=== PATIENT | female | born 1975 | race Two or more races ===

== ENCOUNTER 2024-03-31 09:01 | Outpatient (AMB) | payer BC, SELFPAY ==
--- NOTE | 2024-03-31 09:12 | MHC.OFFVIS ---
Vital Signs 03/31/24 09:13 Height 5 ft 6 in Weight 209 lb BMI 33.7 BP 118/78 Blood Pressure Location Lt brachial Position Sitting Pulse 72 Pulse Source Pulse Oximeter Pulse Oximetry (%) 97 Oxygen Delivery Method Room Air Intake Visit Reasons: OA Allergies No Known Allergies Allergy (Verified 03/31/24 09:14) HPI HPI OA: Details: She was unable to have physical therapy and occupational therapy at [facility] last year. She continues to have pain in her left wrist and bilateral shoulders right worse than left. Pain is at rest and with movement. She has tried diclofenac gel, icy hot, lidocaine patches and has been K taping her left wrists without alleviating pain. She is using her 's wrist brace. She has weakness and is dropping things out of her hands. She has difficulty with lifting things. When she takes many Tylenol tablets throughout the day, it causes constipation. [facility] Medical History (Updated 03/31/24 @ 12:20 by George Villarreal MD) Pre-diabetes Review of Systems Const All systems reviewed & are unremarkable except as noted in HPI and below Physical Exam Vital Signs: Last Vital Signs Pulse 72 03/31/24 09:13 BP 118/78 03/31/24 09:13 Pulse Ox 97 03/31/24 09:13 Oxygen Delivery Method Room Air 03/31/24 09:13 BMI result Body Mass Index 33.7 Const Other: General: Comfortable MSK: Tender to palpate left ulnar wrist with pain with range of motion of wrists. No tenderness of radioulnar joint or any small joints in her hands. Weak sourcing internship. No synovitis. Nontender bilateral shoulders. She has pain with range of motion testing on bilateral shoulders but is able to abduct her shoulders 160 degrees. Good internal external rotation. Assessment & Plan Assessment & Plan (1) Extensor carpi ulnaris tendinitis: Comment: Left wrist suspected. She has developed weakness in her hands. Failed Tylenol (constipation side effect), diclofenac gel, OTC icy hot and K taping. I recommend OT. Code(s): M77.8 - Other enthesopathies, not elsewhere classified Category: Medical Plan: OT ordered. She will benefit from hand strengthening program, modalities, paraffin wax bath, ultrasound-guided localized therapy to ulnar wrists. Prescription for left brace thumb spica splint prescribed Avoid oral NSAIDs in setting of prior history of bleeding peptic ulcer disease Return to clinic in 3 months (2) Right rotator cuff tendonitis: Comment: Right shoulder pain is worse than left due to chronic rotator cuff tendinopathy. Failed Tylenol (constipation side effects) and diclofenac gel) She had right shoulder x-[facility], which was normal. Code(s): M75.81 - Other shoulder lesions, right shoulder Category: Medical Plan: PT ordered. Contraindication to oral NSAIDs due to history of bleeding peptic ulcer disease Return to clinic in 3 months or sooner if needed. Can consider shoulder injection in the future Orders: Orders PT Evaluation and Treatment Today M75.81 - Other shoulder lesions, right shoulder OT Evaluation and Treatment Today M77.8 - Other enthesopathies, not elsewhere classified Medications: New Brace,wrist (Wrist Brace - one) As directed Left thumb spica splint Dx: extensor carpi ulnaris tendonitis 1 ea 0RF Coding Level of Care Code Est Pt Level 4 (41320) Complex EM visit Add On G2211 Diagnoses Extensor carpi ulnaris tendinitis M77.8 Right rotator cuff tendonitis M75.81
[2024-03-31 09:13] VITALS: BP 118/78; PULSE 72; O2SAT 97; BMI 33.7
--- OUTSIDE RECORDS SUMMARY | 2024-03-31 09:27 | XMS_ITS | Clinical Summary ---
Author Organization [facility] Address [address] [place] [address] Care Team Providers Care Metal Drawer Name Role Phone Unavailable Primary Care Provider Unavailabl e Social History Tobacco Use Types Packs/Day Years Used Date Smoking Tobacco: Never Assessed Sex and Gender Information Value Date Recorded Sex Assigned at Not on file Gender Identity Not on file Sexual Orientation Not on file Job Start Date Occupation Industry Not on file Not on file Not on file Plan of Treatment Not on file
--- OUTSIDE RECORDS SUMMARY | 2024-03-31 09:27 | XMS_ITS | Encounter Summary ---
Author Organization [facility] Address [address] [place] [address] Care Team Providers Care Tail Sawyer Name Role Phone Alton Franklin MD Primary Care Provider [phone] Reason for Visit * Imaging (Routine) - Closed Specialty Diagnoses / Procedures Referred By Contac t Referred To Contact Radiology Diagnoses Encounter for screening mammogram for breast cancer Procedures MG Mammo Digital Diagnostic w Pierce bilat MG Mammo Digital Screening w Pierce bilat MG Mammo Digital Screening w Pierce bilat Alton Franklin MD [address] [place] [address] Phone: tel: fax: [facility] Referral ID Status Reason Start Date Expiration Date Visits Re quested Visits Authorized [id number] Closed 12/03/2023 12/02/2024 1 1 Encounter Details Date Type Department Care Team (Latest Contact Info) Description 03/08/2024 8:06 AM EST - 03/08/2024 11:59 PM EST Hospital Encounter Radiology Department - [address] [address] Encounter for screening mammogram for breast cancer Discharge Disposition: Home or Self Care Social History Tobacco Use Types Packs/Day Years Used Date Smoking Tobacco: Never Smokeless Tobacco: Never Alcohol Use Standard Drinks/Week Comments Not Currently 0 (1 standard drink = 0.6 oz pur e alcohol) Comments Unknown Sex and Gender Information Value Date Recorded Sex Assigned at Not on file Legal Sex Female 12:31 AM EST Gender Identity Not on file Sexual Orientation Not on file documented as of this encounter Medications at Time of Discharge acetaminophen (TYLENOL) 500 mg tablet Take 2 Tablets by mouth every 8 hours as needed for Other. 06/30/2023 ascorbic acid (VITAMIN C) 500 mg tablet Take 500 mg by mouth daily. atorvastatin (LIPITOR) 20 mg tablet TAKE 1 TABLET BY MOUTH EVERY DAY 90 tablet 01/08/2024 cetirizine (ZyrTEC) 10 mg tablet Take 1 Tablet by mouth daily for 360 days. 06/30/2023 cyclobenzaprine (FLEXERIL) 10 mg tablet Take 1 Tablet by mouth at bedtime as needed for Muscle spasms for up to 10 days. 10/21/2023 ergocalciferol (VITAMIN D-2) 1,250 mcg (50,000 unit) capsule Take 1 capsule (50,000 Units total) by mouth 1 (one) time per week. 12 each 02/24/2024 6 fluticasone HFA (FLOVENT HFA) 110 mcg/actuation inhaler Inhale 1 Puff into the lungs 2 times daily. 07/02/2023 hydroCHLOROthiazi de (MICROZIDE) 12.5 mg capsule Take 1 capsule (12.5 mg total) by mouth 1 (one) time each day. 90 capsule 01/08/2024 hydrOXYzine HCL (ATARAX) 10 mg tablet Take 1 Tablet by mouth every 8 hours as needed for Anxiety for up to 360 days. 08/11/2023 5 levonorgestreL (MIRENA) 21 mcg/24hr (up to 8 yrs) 52 mg IUD 1 Each by Intrauterine route Once. 11/07/2016 losartan (COZAAR) 25 mg tablet Take 1 tablet (25 mg total) by mouth 1 (one) time each day. 09/21/2023 nirmatrelvir-olu navir (Paxlovid) 300 mg (150 mg x 2)-100 mg tablet therapy pack Take 1 Package by mouth See Admin Instructions. 08/13/2023 nystatin-triamcin olone (MYCOLOG II) cream APPLY A PEA SIZE AMOUNT OF CREAM TO AREAS OF CONCERN 10/05/2023 pantoprazole (PROTONIX) 40 mg EC tablet Take 1 tablet (40 mg total) by mouth 1 (one) time each day. 05/22/2023 phentermine 15 mg capsuleIndication s:Class 1 obesity due to excess calories with serious comorbidity and body mass index (BMI) of 34.0 to 34.9 in adult Take 1 capsule (15 mg total) by mouth 1 (one) time each day before breakfast. Max Daily Amount: 15 mg 30 each 02/18/2024 ritlecitinib (Litfulo) 50 mg capsule Take 50 mg by mouth 1 (one) time each day. simethicone (MYLICON) 80 mg chewable tablet Take 1 Tablet by mouth every 6 hours as needed for Flatulence for up to 30 days. 12/17/2021 SUMAtriptan (IMITREX) 100 mg tablet Take 1 Tab by mouth as needed for Migraine. May repeat dose once after 2 hours, if needed. 01/26/2018 topiramate (TOPAMAX) 50 mg tabletIndications :Class 1 obesity due to excess calories with serious comorbidity and body mass index (BMI) of 34.0 to 34.9 in adult Take 1 tablet (50 mg total) by mouth at bedtime. 90 tablet 02/18/2024 5 nystatin-triamcin olone (MYCOLOG II) cream Apply topically 2 (two) times a day for 25 days. 30 g 2 02/16/2024 5 albuterol HFA (PROAIR HFA ; PROVENTIL HFA ; VENTOLIN HFA) 90 mcg/actuation inhaler Inhale 2 Puffs into the lungs every 6 hours as needed for Cough, Wheezing or Shortness of Breath. 10/02/2023 5 documented as of this encounter Discharge Disposition Disposition Code Departure Means Destination Home or Self Care documented in this encounter Plan of Treatment Upcoming Encounters Date Type Department Care Team (Late st Contact Info) Description 05/17/2024 1:45 PM EDT Office Visit Bariatric Surgery - [place] [address] [facility] [address] [place] [id number] Adwoa Russ MD [address] [facility] [address] [place] [address] documented as of this encounter Procedures Procedure Name Priority Date/Time Associated Diagnosis Comments MG MAMMO DIGITAL DIAGNOSTIC W PIERCE BILAT Routine 03/08/2024 8:26 AM EST Encounter for screening mammogram for breast cancer documented in this encounter Results * MG Mammo Digital Diagnostic w Pierce bilat (03/08/2024 8:26 AM EST) Anatomical Region Laterality Modality Breast Bilateral Mammography 03/08/2024 8:39 AM EST Impressions 03/08/2024 10:05 AM EST 1. ??Right: Upper outer posterior depth calcifications are morphologically stable 2. Left: No mammographic evidence of malignancy 3. Scattered fibroglandular density ?? BI-RADS CATEGORY: 3 - PROBABLY BENIGN RECOMMENDATION: Diagnostic right mammogram recommended in 1 year. Right breast CC and ML magnification views in one year Mammo Location: [facility], [address] [place] [address], [id number], . -------- FINAL REPORT -------- Dictated By: Joselito Plunkett Dictated Date: 03/08/2024 08:39 ET Assigned Physician: Joselito Plunkett Reviewed and Electronically Signed By: Joselito Plunkett Signed Date: 03/08/2024 10:05 ET Workstation ID: [id number] Transcribed By: Self Edit Transcribed Date: 03/08/2024 09:19 ET Narrative 03/08/2024 10:05 AM EST BILATERAL DIGITAL 3D DIAGNOSTIC MAMMOGRAPHY HISTORY: Workup for upper outer posterior depth calcifications in the right breast COMPARISON: Multiple mammogram from 02/25/2023 Technique: Bilateral CC and MLO views, right breast CC and ML magnification views FINDINGS: BREAST DENSITY: B - There are scattered areas of fibroglandular density. Right: Right breast upper outer posterior depth calcifications are morphologically stable. ??No new suspicious masses, microcalcifications or areas of architectural distortion Left: No suspicious masses, microcalcifications or architectural distortion. ??Stable typically benign parenchymal asymmetries. Procedure Note Joselito Plunkett MD - 03/08/2024 BILATERAL DIGITAL 3D DIAGNOSTIC MAMMOGRAPHY HISTORY: Workup for upper outer posterior depth calcifications in theright breast COMPARISON: Multiple mammogram from 02/25/2023 Technique: Bilateral CC and MLO views, right breast CC and MLmagnification views FINDINGS: BREAST DENSITY: B - There are scattered areas of fibroglandular density. Right: Right breast upper outer posterior depth calcifications aremorphologically stable. No new suspicious masses, microcalcifications orareas of architectural distortion Left: No suspicious masses, microcalcifications or architectural distortion.Stable typically benign parenchymal asymmetries. IMPRESSION: 1. Right: Upper outer posterior depth calcifications are morphologicallystable 2. Left: No mammographic evidence of malignancy 3. Scattered fibroglandular density BI-RADS CATEGORY: 3 - PROBABLY BENIGN RECOMMENDATION: Diagnostic right mammogram recommended in 1 year. Right breast CC and MLmagnification views in one year Mammo Location: [facility], [address] [place] [address], [id number], . -------- FINAL REPORT -------- Dictated By: Joselito Plunkett Dictated Date: 03/08/2024 08:39 ET Assigned Physician: Joselito Plunkett Reviewed and Electronically Signed By: Joselito Plunkett Signed Date: 03/08/2024 10:05 ET Workstation ID: [id number] Transcribed By: Self Edit Transcribed Date: 03/08/2024 09:19 ET us Alton Franklin MD IMG BI PROCEDURES Final Result documented in this encounter Visit Diagnoses Diagnosis Encounter for screening mammogram for breast cancer documented in this encounter Care Teams Tail Sawyer Relationship Specialty Start Date End Date Alton Franklin MD [address] [place] [id number] PCP - General Internal Medicine 01/15/24 documented as of this encounter
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
--- OUTSIDE RECORDS SUMMARY | 2024-03-31 09:27 | XMS_ITS | Encounter Summary ---
Author Organization [facility] Address [address] [place] [address] Care Team Providers Care Drawstring Knotter Name Role Phone Alton Franklin MD Primary Care Provider [phone] Reason for Referral * Consultation (Routine) - Authorized Specialty Diagnoses / Procedures Referred By Contac t Referred To Contact Endocrinology Diagnoses Hypoglycemia Deepa Herman MD [address] [place] [phone] Phone: tel: fax: [facility] [address] [place] [address] Phone: tel: fax: Referral ID Status Reason Start Date Expiration Date Visits Requested Visits Authorized [id number] Authorized Specialty Services Required 02/25/2024 02/24/2025 1 1 Reason for Visit * Reason Onset Date Comments REFERRAL 01/08/2024 Encounter Details Date Type Department Care Team (Late st Contact Info) Description 01/08/2024 Telephone Endocrinology - [place] [address] [place] [phone] Deepa Herman MD [address] [place] [phone] REFERRAL Social History Tobacco Use Types Packs/Day Years [...] on file documented as of this encounter Progress Notes * Brisa Fuentes MA - 03/17/2024 1:50 PM EST Spoke with patient she was seen in [facility] on 03/14/24. * Deepa Herman MD - 02/25/2024 6:25 AM ESTAddended by: DEEPA HERMAN on: 02/25/2024 06:25 AM Modules accepted: Orders * Deepa Herman MD - 02/25/2024 6:24 AM EST Orders placed. * TROY Tracy - 02/22/2024 10:[address] referral if appropriate * Galindo Wall - 02/22/2024 3:44 PM EST Patient is calling again regarding referral to '[facility] Endo for hypoglycemia. Please advise * Elsa Vang RN - 01/29/2024 9:21 AM EST PLAN: Concerns for hypoglycemia, she does have a h/o gastric bypass surgery and sx and complaints are postprandial. She was asked to check sugars when having sx., no low sugars reported. Dumping? She did have low sugars randomly noted on blood tests, may require dynamic testing for which shall need referral. All questions answered. Pt is inquiring about the referral mentioned in the plan Please advise * Natalee Sher - 01/28/2024 2:56 PM EST Patient is here in office, following up re: below. She states at last [facility] a referral was supposed joshua placed, I do not see any referrals placed. * Brisa Fuentes MA - 01/08/2024 3:24 PM EST patient is looking for a referral for [facility] I didn't see a referral for her. * Natalee Sher - 01/08/2024 2:17 PM EST Patient is calling, she was seen by Dr. Herman on 12/07/23 and was being referred to [facility] for further testing and has not heard anything yet. She wants to make sure order was placed and that she should be hearing something soon. Please advise? documented in this encounter Plan of Treatment Upcoming Encounters Date Type Department Care Team (Late st Contact Info) Description 05/17/2024 1:45 PM EDT Office Visit Bariatric Surgery - [place] [address] [phone] Adwoa Russ MD [address] [address] Scheduled Referrals Name Type Priority Associated Diagnoses Order Schedule Ambulatory referral to Endocrinology Outpatient Referral Routine Hypoglycemia 1 Occurrences starting 02/25/2024 until 02/24/2025 documented as of this encounter Visit Diagnoses Diagnosis Hypoglycemia- Primary Hypoglycemia, unspecified documented in this encounter Care Teams Drawstring Knotter Relationship Specialty Start Date End Date Alton Franklin MD [address] [place] [id number] PCP - General Internal Medicine 01/15/24 documented as of this encounter
--- OUTSIDE RECORDS SUMMARY | 2024-03-31 09:27 | XMS_ITS | Clinical Summary ---
Author Organization [address] Address [address] [place] [phone] Phone Care Team Providers Care Jordan Worker Name Role Phone Alton Franklin MD Primary Care Provider [phone] Allergies Active Allergy Reactions Criticality Noted Date Comments Ibuprofen 12/27/2019 Gastric ulcers Pollen Extracts 07/05/2018 Medications fluticasone HFA (FLOVENT HFA) 110 mcg/actuation inhaler Inhale 1 Puff into the lungs 2 times daily. Active cyclobenzaprine (FLEXERIL) 10 mg tablet Take 1 Tablet by mouth at bedtime as needed for Muscle spasms for up to 10 days. Active nystatin-triamci nolone (MYCOLOG II) cream APPLY A PEA SIZE AMOUNT OF CREAM TO AREAS OF CONCERN Active losartan (COZAAR) 25 mg tablet Take 1 tablet (25 mg total) by mouth 1 (one) time each day. Active nirmatrelvir-rit onavir (Paxlovid) 300 mg (150 mg x 2)-100 mg tablet therapy pack Take 1 Package by mouth See Admin Instructions. Active hydrOXYzine HCL (ATARAX) 10 mg tablet Take 1 Tablet by mouth every 8 hours as needed for Anxiety for up to 360 days. 2024 Active acetaminophen (TYLENOL) 500 mg tablet Take 2 Tablets by mouth every 8 hours as needed for Other. Active cetirizine (ZyrTEC) 10 mg tablet Take 1 Tablet by mouth daily for 360 days. 2024 Active pantoprazole (PROTONIX) 40 mg EC tablet Take 1 tablet (40 mg total) by mouth 1 (one) time each day. Active simethicone (MYLICON) 80 mg chewable tablet Take 1 Tablet by mouth every 6 hours as needed for Flatulence for up to 30 days. Active SUMAtriptan (IMITREX) 100 mg tablet Take 1 Tab by mouth as needed for Migraine. May repeat dose once after 2 hours, if needed. Active levonorgestreL (MIRENA) 21 mcg/24hr (up to 8 yrs) 52 mg IUD 1 Each by Intrauterine route Once. Active ascorbic acid (VITAMIN C) 500 mg tablet Take 500 mg by mouth daily. Active atorvastatin (LIPITOR) 20 mg tablet TAKE 1 TABLET BY MOUTH EVERY DAY 90 tablet Active hydroCHLOROthiaz katie (MICROZIDE) 12.5 mg capsule Take 1 capsule (12.5 mg total) by mouth 1 (one) time each day. 90 capsule Active ritlecitinib (Litfulo) 50 mg capsule Take 50 mg by mouth 1 (one) time each day. Active phentermine 15 mg capsuleIndicatio ns:Class 1 obesity due to excess calories with serious comorbidity and body mass index (BMI) of 34.0 to 34.9 in adult Take 1 capsule (15 mg total) by mouth 1 (one) time each day before breakfast. Max Daily Amount: 15 mg 30 each Active topiramate (TOPAMAX) 50 mg tabletIndication s:Class 1 obesity due to excess calories with serious comorbidity and body mass index (BMI) of 34.0 to 34.9 in adult Take 1 tablet (50 mg total) by mouth at bedtime. 90 tablet 025 2024 Active ergocalciferol (VITAMIN D-2) 1,250 mcg (50,000 unit) capsule Take 1 capsule (50,000 Units total) by mouth 1 (one) time per week. 12 each /08/ 2026 Active albuterol HFA (PROAIR HFA ; PROVENTIL HFA ; VENTOLIN HFA) 90 mcg/actuation inhalerIndicatio ns:Mild intermittent asthma, uncomplicated INHALE 2 PUFFS INTO THE LUNGS EVERY 6 HOURS NEEDED FOR COUGH, WHEEZING OR SHORTNESS OF BREATH. 8.5 each 025 Active albuterol HFA (PROAIR HFA ; PROVENTIL HFA ; VENTOLIN HFA) 90 mcg/actuation inhaler Inhale 2 Puffs into the lungs every 6 hours as needed for Cough, Wheezing or Shortness of Breath. 024 2024 Discontinued nystatin-triamci nolone (MYCOLOG II) cream Apply topically 2 (two) times a day for 25 days. 30 g 2 024 2024 Active Problems Problem Noted Date Diagnosed Date Class 1 obesity with body ma ss index (BMI) of 32.0 to 32.9 in adult 12/14/2023 Mixed hyperlipidemia 09/10/2021 S/P laparoscopic colectomy 05/16/2021 History of COVID-19 02/05/2021 Overview (12/14/2023): Pre-admision testing 02/05/21/ 09/25/21 positive AFC Diverticulitis 12/20/2019 Overview (12/14/2023): Recurrent, advised by GI consult at ER visit 12/08/2019 to f/u outside GI for further assessment as this was third episodein 1.5 years. Essential hypertension 05/11/2018 Pain in joint, multiple sites 05/11/2018 Plantar fasciitis, bilateral 05/11/2018 Snoring 09/15/2016 Overview (12/14/2023): 09/10/2016 Home Sleep Study did not reveal sleep apnea. Notes Recorded by MATHEW Wren on 09/15/2016 at 7:16 AM No sleep apnea or oxygen desats by home study. Some snoring. Weight loss, ENT consult, side lying sleep position and/or trial of OTC MAD (vitalsleep.com or snorerx.com) may be helpful. Costochondral chest pain 10/30/2014 Alopecia 04/29/2012 Overview (12/14/2023): Onset age 13. Has had scalp and IM corticosteroid injections off and on since 2006 Oral methotrexate started 2011 Asthma 10/21/2011 Overview (12/14/2023): 04/2016: patient cancelled PFT's ordered. ka Depression 07/20/2009 Heartburn 04/03/2008 Overview (12/14/2023): Hiatal hernia repair with Walt fundoplication 09/2018, Balloon dilitation 10/2018 for dysphagia Allergic rhinitis 06/30/2006 Encounters Date Type Department Care Team Description 03/08/2024 8:06 AM EST - 03/08/2024 11:59 PM EST Hospital Encounter Radiology Department - [address] [phone] Encounter for screening mammogram for breast cancer Discharge Disposition: Home or Self Care 02/18/2024 10:00 AM EST Office Visit Bariatric Surgery - [address] [phone] Adwoa Russ MD Class 1 obesity due to excess calories with serious comorbidity and body mass index (BMI) of 34.0 to 34.9 in adult (Primary Dx) 02/16/2024 9:50 AM EST Lab Draw Station - [address] [place] [address] [address] [place] [phone] Hypokalemia (Primary Dx); S/P bariatric surgery 02/16/2024 9:00 AM EST Office Visit Bariatric Surgery - [address] [place] [phone] Rizwana Woodruff MD S/P bariatric surgery (Primary Dx); Obesity (BMI 30-39.9); Alopecia; Dumping syndrome 01/08/2024 Telephone Endocrinology - [address] [phone] Ok Herman MD REFERRAL from Last 3 Months Immunizations Name Administration Dates Next Due Influenza Quadravalent, MDCK , 0.5ml, preservative free (Flucelvax) 6mo and older 01/07/2019 Influenza trivalent, 0.5mL, preservative free (Fluarix; FluLaval; Fluzone) ages 6mo and older (Afluria) 3 years and older 01/15/2007 Moderna SARS-CoV-2 COVID-19, mRNA, LNP-S, preservative free 12/23/2020 PPD Test 05/02/2003 Pneumococcal polysaccharide 23 valent (Pneumovax 23) 2yo and older 01/07/2016 Tdap Tetanus diptheria acell ular pertussis (Boostrix; Adacel) 7yo and older 08/10/2023,03/03/2013 Surgical History Surgery Date Site/Laterality Comments OTHER SURGICAL HISTORY 05/2000 Right PROCEDURE: [place] ARTHRS KNEE W/MENISCECTOMY MED&LAT W/SHAVING; COMMENT: & ACL repair, Dr. Rivas COLONOSCOPY 08/11/2018 PROCEDURE: HISTORICAL COLONOSCOPY; COMMENT: diverticulosis otherwise normal, repeat age 50 [address] Porter OTHER SURGICAL HISTORY 09/23/2018 PROCEDURE: REPAIR PARAESOPHAGEAL HERNIA; COMMENT: Dr Santiago Beard @ [facility] Walt fundoplication with mesh OTHER SURGICAL HISTORY 11/12/2018 PROCEDURE: [place] EGD BALLOON DILATION ESOPHAGUS <30 MM DIAM; COMMENT: Dr Santiago Beard dilation to 20mm esoph stricture s/p Walt Medical History Medical History Date Comments Alopecia areata DX:Alopecia area ta Obesity 04/03/2008 DX:Obesity Asthma 10/21/2011 DX:Asthma Alopecia 04/29/2012 DX:Alopecia History of other specified c onditions presenting hazards to health 2002 DX:History of other speci fied conditions presenting hazards to health; COMMENT: laser LINDA II Essential hypertension 05/11/2018 DX:Essent ial hypertension S/P laparoscopic colectomy 05/16/2021 DX:S/ P laparoscopic colectomy Family History Medical History Relation Name Comments Arthritis Maternal Grandmother hands Breast cancer Maternal Grandmother Other: cancer of esophogus Paternal Grandmother Relation Name Status Comments Brother (Age 30) drowned 20 07 at [facility] Daughter 1 Alive born Daughter 2 Alive 2005. And has s tep son born 1999 Daughter 3 Alive 2007 Father (Age 41) AIDS Maternal Grandmother Mother Alive hyperlipidemia Paternal Grandmother Son Alive born 96 Social History Tobacco Use Types Packs/Day Years Used Date Smoking Tobacco: Never Smokeless Tobacco: Never Alcohol Use Standard Drinks/Week Comments Not Currently 0 (1 standard drink = 0.6 oz pur e alcohol) Comments Unknown Sex and Gender Information Value Date Recorded Sex Assigned at Not on file Legal Sex Female 12:31 AM EST Gender Identity Not on file Sexual Orientation Not on file Obstetrics History Para Term AB IAB SAB Ectopic Multiple Livin g Live Births 4 4 4 Date Outcome GA Total Labor Labor/2nd/3rd Weight Sex Type Anes PTL Ana A1 A5 Name Clin Term Term Term Term Last Filed Vital Signs Vital Sign Reading Time Taken Comments Blood Pressure 137/84 02/18/2024 10:07 AM EST Pulse 91 02/18/2024 10:07 AM EST Temperature 36.3 ??C (97.4 ??F) 02/18/2024 10:[address] Respiratory Rate - - Oxygen Saturation - - Inhaled Oxygen Concentration - - Weight 96.2 kg (212 lb) 02/18/2024 10:07 AM EST Height 167.6 cm (5' 6 ) 02/18/2024 10:07 AM EST Body Mass Index 34.22 02/18/2024 10:07 AM EST Plan of Treatment Upcoming Encounters Date Type Department Care Team (Late st Contact Info) Description 05/17/2024 1:45 PM EDT Office Visit Bariatric Surgery - [place] [address] [facility] [address] [place] [phone] Adwoa Russ MD [address] [facility] [address] [place] [address] Health Maintenance Due Date Last Done Comments Hepatitis B Vaccines (1 of 3 - 19+ 3-dose series) 04/24/1994 Pneumococcal Vaccine: Pediatrics (0 to 5 Years) and At-Risk Patients (6 to 64 Years) (2 of 2 - PCV) 01/06/2017 01/07/2016 Colorectal Cancer Screening: Colonoscopy 01/25/2022 Depression Screening 01/25/2022 Social Influencers of Health Screening 01/25/2022 Hypertension/CHF/CAD Annual BMP Blood Test 02/15/2025 02/16/2024, 08/10/2023, 08/10/2023, Additional history exists Breast Cancer Screening 03/08/2026 03/08/19 25, 08/31/2023, 08/31/2023, Additional history exists Cervical Cancer Screening: HPV 09/12/2026 09/12/2021 Cholesterol Screening (Lipid Panel) 08/09/2028 08/10/2023, 08/10/2023 DTaP,Tdap,and Td Vaccines (4 - Td or Tdap) 08/09/2033 08/10/2023, 08/09/2022, 03/03/2013 HIV Screening Completed 05/01/2011 Hepatitis C Screening Completed 05/01/2011 COVID-19 Vaccine Completed 01/01/2024, , 12/23/2020, Additional history exists Influenza Vaccine Completed 01/01/2024, , 12/23/2020, Additional history exists HIB Vaccines Aged Out No longer eligi ble based on patient's age to complete this topic HPV Vaccines Aged Out No longer eligi ble based on patient's age to complete this topic Hepatitis A Vaccines Aged Out No long er eligible based on patient's age to complete this topic IPV Vaccines Aged Out No longer eligi ble based on patient's age to complete this topic MMR Vaccines Aged Out No longer eligi ble based on patient's age to complete this topic Meningococcal ACWY Vaccine Aged Out N o longer eligible based on patient's age to complete this topic Meningococcal B Vacine Aged Out No lo nger eligible based on patient's age to complete this topic RSV Immunization Patients Under 20 months Aged Out No longer eligible based on patient's age to complete this topic Varicella Vaccines Aged Out No longer eligible based on patient's age to complete this topic Procedures Procedure Name Priority Date/Time Associated Diagnosis Comments MG MAMMO DIGITAL DIAGNOSTIC W PIERCE BILAT Routine 03/08/2024 8:26 AM EST Encounter for screening mammogram for breast cancer CBC WITH AUTO DIFFERENTIAL Routine 02/16/2024 9:47 AM EST S/P bariatric surgery COPPER, SERUM Routine 02/16/2024 9:47 AM EST S/P bariatric surgery FOLATE Routine 02/16/2024 9:47 AM EST S/P bariatric surgery SELENIUM SERUM Routine 02/16/2024 9:47 AM EST S/P bariatric surgery ZINC Routine 02/16/2024 9:47 AM EST S/P bariatric surgery VITAMIN D 25 HYDROXY Routine 02/16/2024 9:47 AM EST S/P bariatric surgery VITAMIN B6 Routine 02/16/2024 9:47 AM EST S/P bariatric surgery VITAMIN B12 Routine 02/16/2024 9:47 AM EST S/P bariatric surgery VITAMIN B1 Routine 02/16/2024 9:47 AM EST S/P bariatric surgery VITAMIN A Routine 02/16/2024 9:47 AM EST S/P bariatric surgery IRON AND TIBC Routine 02/16/2024 9:47 AM EST S/P bariatric surgery CBC AND DIFFERENTIAL Routine 02/16/2024 9:47 AM EST S/P bariatric surgery COMPREHENSIVE METABOLIC PANEL Routine 02/16/2024 9:47 AM EST S/P bariatric surgery LIPID PANEL Routine 08/10/2023 HM HPV Routine 09/12/2021 HM HEPATITIS C SCREENING Routine 05/01/2011 HM HIV SCREENING Routine 05/01/2011 from Last 3 Months or Most Recently Relevant to Health Maintenance Results * MG Mammo Digital Diagnostic w [...] magnification views in one year Mammo Location: [facility], [address] [place] [address], [phone], . -------- FINAL REPORT -------- Dictated By: Joselito Plunkett Dictated Date: 03/08/2024 08:39 ET Assigned Physician: Joselito Plunkett Reviewed and Electronically Signed By: Joselito Plunkett Signed Date: 03/08/2024 10:05 ET Workstation ID: [id number] Transcribed By: Self Edit Transcribed Date: 03/08/2024 [...] MLmagnification views in one year Mammo Location: [facility], [address] [place] [address], [phone], . -------- FINAL REPORT -------- Dictated By: Joselito Plunkett Dictated Date: 03/08/2024 08:39 ET Assigned Physician: Joselito Plunkett Reviewed and Electronically Signed By: Joselito Plunkett Signed Date: 03/08/2024 10:05 ET Workstation ID: [id number] Transcribed By: Self Edit Transcribed Date: 03/08/2024 09:19 ET Alton Frankiln MD IMG BI PROCEDURES Final Result * CBC auto differential (02/16/2024 9:47 AM EST) WBC 7.0 4.8 - 10.8 K/mcL LAB HEMETOLOGY METHOD 02/16/2024 2:10 PM EST [facility] RBC 4.20 3.80 - 4.80 M/mcL LAB HEMETOLOGY METHOD 02/16/2024 2:10 PM EST [facility] Hemoglobin 12.5 11.5 - 16.0 g/dL LAB HEMETOLOGY METHOD 02/16/2024 2:10 PM [facility] Hematocrit 39.1 35.0 - 47.0 % LAB HEMETOLOGY METHOD 02/16/2024 2:10 PM [facility] MCV 93.8 79.0 - 98.0 FL LAB HEMETOLOGY METHOD 02/16/2024 2:10 PM [facility] MCH 30.0 27.0 - 32.0 pcg LAB HEMETOLOGY METHOD 02/16/2024 2:10 PM [facility] MCHC 32.0 32.0 - 37.0 g/dL LAB HEMETOLOGY METHOD 02/16/2024 2:10 PM [facility] RDW 13.3 11.0 - 15.0 % LAB HEMETOLOGY METHOD 02/16/2024 2:10 PM [facility] Platelets 329 130 - 400 K/mcL LAB HEMETOLOGY METHOD 02/16/2024 2:10 PM [facility] MPV 9.4 7.0 - 11.0 FL LAB HEMETOLOGY METHOD 02/16/2024 2:10 PM [facility] NRBC 0.0 <1.0 % LAB HEMETOLOGY METHOD 02/16/2024 2:10 PM [facility] NRBC Absolute 0.00 <0.10 K/mcL LAB HEMETOLOGY METHOD 02/16/2024 2:10 PM [facility] Neutrophils Relative 71.5 % LAB HEMETOLOGY METHOD 02/16/2024 2:10 PM [facility] Lymphocytes Relative 17.9 % LAB HEMETOLOGY METHOD 02/16/2024 2:10 PM [facility] Monocytes Relative 7.7 % LAB HEMETOLOGY METHOD 02/16/2024 2:10 PM [facility] Eosinophils Relative 2.0 % LAB HEMETOLOGY METHOD 02/16/2024 2:10 PM [facility] Basophils Relative 0.6 % LAB HEMETOLOGY METHOD 02/16/2024 2:10 PM [facility] Immature Granulocytes Relative 0.3 % LAB HEMETOLOGY METHOD 02/16/2024 2:10 PM [facility] Neutrophils Absolute 5.01 1.50 - 7.00 K/mcL LAB HEMETOLOGY METHOD 02/16/2024 2:10 PM EST [facility] Lymphocytes Absolute 1.25 1.00 - 5.00 K/mcL LAB HEMETOLOGY METHOD 02/16/2024 2:10 PM EST [facility] Monocytes Absolute 0.54 0.20 - 1.00 K/mcL LAB HEMETOLOGY METHOD 02/16/2024 2:10 PM EST [facility] Eosinophils Absolute 0.14 0.00 - 0.50 K/mcL LAB HEMETOLOGY METHOD 02/16/2024 2:10 PM EST [facility] Basophils Absolute 0.04 0.00 - 0.20 K/mcL LAB HEMETOLOGY METHOD 02/16/2024 2:10 PM EST [facility] Immature Granulocytes Absolute 0.02 0.00 - 0.03 K/mcL LAB HEMETOLOGY METHOD 02/16/2024 2:10 PM EST [facility] Blood Venous blood specimen / Unknown Venipuncture / Unknown 02/16/2024 9:47 AM EST 02/16/2024 9:47 AM EST Rizwana Woodruff MD LAB BLOOD ORDERABLES Fi nal Result [facility] [address] [place] [address], * Iron and TIBC (02/16/2024 9:47 AM EST) Iron 106 40 - 150 mcg/dL LAB CHEMISTRY METHOD 02/16/2024 2:44 PM EST [facility] TIBC 351 250 - 450 mcg/dL LAB CHEMISTRY METHOD 02/16/2024 2:44 PM EST [facility] Iron Saturation 30 15 - 50 % LAB CHEMISTRY METHOD 02/16/2024 2:44 PM EST [facility] Blood Venous blood specimen / Unknown Venipuncture / Unknown 02/16/2024 9:47 AM EST 02/16/2024 9:47 AM EST us Rizwana Woodurff MD LAB BLOOD ORDERABLES Fi nal Result Performing Organization Address City/[facility] Co de Phone Number [facility] BARRIOSJOSH [place] ([place]) [facility] [address] [place] [address], * Copper, serum (02/16/2024 9:47 AM EST) Copper 961 810 - 1990 ug/L 02/23/2024 8:59 AM EST [facility] Comment: Copper values may be elevated to twice the normal levels in . Elevated results may be due to sample collected in a non-certified trace element-free tube. This test was developed and the performance characteristics determined by [facility]. It has not been cleared or approved by the FDA. The laboratory is regulated under CLIA as qualified to perform high-complexity testing. This test is used for patient testing purposes. It should not be regarded as investigational or for research. Test performed at [facility], [address] [place], [place] ??[address] ? [phone] Jossy Louie MD, PhD - Industrial Radiographer Blood Venous blood specimen / Unknown Venipuncture / Unknown 02/16/2024 9:47 AM EST 02/16/2024 9:47 AM EST us Rizwana Woodruff MD LAB BLOOD ORDERABLES Fi nal Result Performing Organization Address City/[facility] Co de Phone Number [facility] [address] [place] [address] * Zinc (02/16/2024 9:47 AM EST) Zinc 80 60 - 130 ug/dL 02/22/2024 3:22 PM EST [facility] Comment: Elevated results may be due to sample collected in a non-certified trace element-free tube. This test was developed and the performance characteristics determined by [facility]. It has not been cleared or approved by the FDA. The laboratory is regulated under CLIA as qualified to perform high-complexity testing. This test is used for patient testing purposes. It should not be regarded as investigational or for research. Test performed at [facility], [address] [place], [place] ??[address] ? [phone] Jossy Louie MD, PhD - Industrial Radiographer Blood Venous blood specimen / Unknown Venipuncture / Unknown 02/16/2024 9:47 AM EST 02/16/2024 9:47 AM EST Rizwana Woodruff MD LAB BLOOD ORDERABLES Fi nal Result Performing Organization Address [facility]/ZIP Co de Phone Number [facility] [address] [place] [address] * Vitamin A (02/16/2024 9:47 AM EST) Vitamin A 41 38 - 106 ug/dL 02/24/2024 6:01 AM EST [facility] Comment: This test was developed and the performance characteristics determined by [facility]. It has not been cleared or approved by the FDA. The laboratory is regulated under CLIA as qualified to perform high-complexity testing. This test is used for patient testing purposes. It should not be regarded as investigational or for research. Test performed at [facility], [address] [place], [place] ??[address] ? [phone] Jossy Louie MD, PhD - Industrial Radiographer Blood Venous blood specimen / Unknown Venipuncture / Unknown 02/16/2024 9:47 AM EST 02/16/2024 9:47 AM EST Rizwana Woodruff MD LAB BLOOD ORDERABLES Fi nal Result Performing Organization Address City/[facility]/ZIP Co de Phone Number [facility] [address] [place] [address] * Selenium serum (02/16/2024 9:47 AM EST) Selenium 93 63 - 160 mcg/L 02/24/2024 7:39 PM EST [facility] Comment: (Note) This test was developed and its analytical performance characteristics have been determined by [facility]. It has not been cleared or approved by the FDA. This assay has been validated pursuant to the CLIA regulations and is used for clinical purposes. [facility] [address] [facility] [address] Marc Pena MD, PhD Test Performed at: [facility] [address], [address] [place], [place] ??[phone] ? I Elli Pena MD, PhD Blood Venous blood specimen / Unknown Venipuncture / Unknown 02/16/2024 9:47 AM EST 02/16/2024 9:47 AM EST Rizwana Woodruff MD LAB BLOOD ORDERABLES Fi nal Result [facility] [address] [place] [address] * (ABNORMAL) Vitamin D 25 hydroxy (02/16/2024 9:47 AM EST) Pathologist [facility] Vit D, 25-Hydroxy 13.4(L) 30.0 - 80.0 ng/mL LAB CHEMISTRY METHOD 02/16/2024 2:29 PM EST [facility] Blood Venous blood specimen / Unknown Venipuncture / Unknown 02/16/2024 9:47 AM EST 02/16/2024 9:47 AM EST Rizwana Woodruff MD LAB BLOOD ORDERABLES Fi nal Result [facility] [address] [place] [address], * Vitamin B1 (02/16/2024 9:47 AM EST) [facility] Vitamin B1 Whole Blood 93 38 - 122 ug/L 02/23/2024 9:19 AM EST [facility] Comment: This test was developed and the performance characteristics determined by [facility]. It has not been cleared or approved by the FDA. The laboratory is regulated under CLIA as qualified to perform high-complexity testing. This test is used for patient testing purposes. It should not be regarded as investigational or for research. Test performed at [facility], [address] [place], [place] ??[address] ? [phone] Jossy Louie MD, PhD - Industrial Radiographer Blood Venous blood specimen / Unknown Venipuncture / Unknown 02/16/2024 9:47 AM EST 02/16/2024 9:47 AM EST us Rizwana Woodruff MD LAB BLOOD ORDERABLES Fi nal Result Performing Organization Address [facility] Co de Phone Number [facility] [address] [place] [address] * Vitamin B6 (02/16/2024 9:47 AM EST) [facility] Vitamin B6 (Pyridoxine) Level 9 5 - 50 ug/L 02/24/2024 5:28 AM EST [facility] Comment: This test was developed and the performance characteristics determined by [facility]. It has not been cleared or approved by the FDA. The laboratory is regulated under CLIA as qualified to perform high-complexity testing. This test is used for patient testing purposes. It should not be regarded as investigational or for research. Test performed at [facility], [address] [place], [place] ??[address] ? [phone] Jossy Louie MD, PhD - Industrial Radiographer Blood Venous blood specimen / Unknown Venipuncture / Unknown 02/16/2024 9:47 AM EST 02/16/2024 9:47 AM EST us Rizwana Woodruff MD LAB BLOOD ORDERABLES Fi nal Result Performing Organization Address [facility]/ZIP Co de Phone Number [facility] [address] [place] [address] * Folate (02/16/2024 9:47 AM EST) [facility] Folate 13.4 2.8 - 17.0 ng/ml LAB CHEMISTRY METHOD 02/16/2024 2:44 PM EST [facility] Blood Venous blood specimen / Unknown Venipuncture / Unknown 02/16/2024 9:47 AM EST 02/16/2024 9:47 AM EST us Rizwana Woodruff MD LAB BLOOD ORDERABLES Fi nal Result Performing Organization Address [facility]/ZIP Co de Phone Number [facility] [address] [place] [address], [place] [phone] * Vitamin B12 (02/16/2024 9:47 AM EST) [facility] Vitamin B-12 313 250 - 900 pcg/mL LAB CHEMISTRY METHOD 02/16/2024 2:44 PM EST [facility] Blood Venous blood specimen / Unknown Venipuncture / Unknown 02/16/2024 9:47 AM EST 02/16/2024 9:47 AM EST us Rizwana Woodruff MD LAB BLOOD ORDERABLES Fi nal Result Performing Organization Address [facility]/ZIP Co de Phone Number [facility] [address] [place] [address], [place] [phone] * (ABNORMAL) Comprehensive metabolic panel (02/16/2024 9:47 AM EST) [facility] Sodium 139 133 - 145 mmol/L LAB CHEMISTRY METHOD 02/16/2024 2:44 PM EST [facility] Potassium 3.4(L) 3.5 - 5.5 mmol/L LAB CHEMISTRY METHOD 02/16/2024 2:44 PM EST [facility] Chloride 107 96 - 110 mmol/L LAB CHEMISTRY METHOD 02/16/2024 2:44 PM EST [facility] CO2 27 21 - 32 mmol/L LAB CHEMISTRY METHOD 02/16/2024 2:44 PM [facility] Anion Gap 5 3 - 11 LAB CHEMISTRY METHOD 02/16/2024 2:44 PM [facility] Glucose 85 70 - 100 mg/dL LAB CHEMISTRY METHOD 02/16/2024 2:44 PM [facility] BUN 12 5 - 25 mg/dL LAB CHEMISTRY METHOD 02/16/2024 2:44 PM [facility] Creatinine 0.78 0.50 - 1.10 mg/dL LAB CHEMISTRY METHOD 02/16/2024 2:44 PM [facility] eGFR 94 >=60 mL/min/1. 73m2 LAB CHEMISTRY METHOD 02/16/2024 2:44 PM [facility] Comment:Calculation based on the??Chronic Kidney Disease Epidemiology Collaboration (CKD-EPI) equation refit??without adjustment for race. BUN/Creatinine Ratio 15.4 LAB CHEMISTRY METHOD 02/16/2024 2:44 PM [facility] Calcium 8.6 8.5 - 10.5 mg/dL LAB CHEMISTRY METHOD 02/16/2024 2:44 PM [facility] AST (SGOT) 10 10 - 42 unit/L LAB CHEMISTRY METHOD 02/16/2024 2:44 PM [facility] ALT (SGPT) 18 10 - 60 unit/L LAB CHEMISTRY METHOD 02/16/2024 2:44 PM [facility] Alkaline Phosphatase 82 42 - 121 unit/L LAB CHEMISTRY METHOD 02/16/2024 2:44 PM [facility] Total Protein 6.7 6.0 - 8.0 g/dL LAB CHEMISTRY METHOD 02/16/2024 2:44 PM [facility] Albumin 3.6 3.2 - 5.0 g/dL LAB CHEMISTRY METHOD 02/16/2024 2:44 PM [facility] Total Bilirubin 0.6 0.0 - 1.4 mg/dL LAB CHEMISTRY METHOD 02/16/2024 2:44 PM EST [facility] Blood Venous blood specimen / Unknown Venipuncture / Unknown 02/16/2024 9:47 AM EST 02/16/2024 9:47 AM EST Rizwana Woodruff MD LAB BLOOD ORDERABLES Fi nal Result [facility]) [facility] [address] [place] [address], * Lipid panel (08/10/2023) [facility] LDL/HDL Ratio 3 0 - 4 Triglycerides 126 0 - 150 mg/dL Cholesterol 161 0 - 200 mg/dL HDL 53 >=40 mg/dL LDL Cholesterol 83 0 - 100 mg/dL Blood Venous blood specimen / Unknown Historical [facility] BLOOD ORDERABLES Dory l Result * Cervical Cancer Screening: HPV (09/12/2021) [facility] Cervical Cancer Screening: HPV negative,a bstracted Historical Provider HEALTH MAINTENANCE Final Result * HIV Screening (05/01/2011) [facility] HIV Screening ABSTRACTED Historical Provider HEALTH MAINTENANCE Final Result * Hepatitis C Screening (05/01/2011) [facility] Hepatitis C Screening ABSTRACTED Historical Provider HEALTH MAINTENANCE Final Result from Last 3 Months or Most Recently Relevant to Health Maintenance Insurance [facility] ([facility]) Advance Directives Documents on File Type Date Recorded Patient Housemaid Expl anation Health Care Decision (hx) 04/30/2021 AD FERGUSON DIRECTIVE Health Care Decision (hx) 04/30/2021 AD FERGUSON DIRECTIVE Health Care Decision (hx) 04/30/2021 AD FERGUSON DIRECTIVE Health Care Decision (hx) 04/30/2021 AD FERGUSON DIRECTIVE Health Care Decision (hx) 04/30/2021 AD FERGUSON DIRECTIVE Health Care Decision (hx) 04/30/2021 AD FERGUSON DIRECTIVE Health Care Decision (hx) 04/30/2021 AD FERGUSON DIRECTIVE Care Teams Jordan Worker Relationship Specialty Start Date End Date Alton Franklin MD [address] [place] [id number] PCP - General Internal Medicine 01/15/24
== END 2024-03-31 09:48 | disposition home or self-care (01) ==
PROVIDERS: PCP Internal Medicine; Visit Provider Internal Medicine Rheumatology
DX: M77.8 Other enthesopathies, not elsewhere classified (principal); M75.81 Other shoulder lesions, right shoulder
CPT/HCPCS: 99214

== ENCOUNTER → 2024-03-31 09:01 | Outpatient (BNVA) | payer BC, SELFPAY | PROVIDERS: PCP Internal Medicine; Visit Provider Internal Medicine Rheumatology ==

== ENCOUNTER 2024-05-12 09:56 | Outpatient (RCR) | payer BC, SELFPAY ==
--- NOTE | 2024-05-12 13:01 | MHC.OT.EP ---
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 She presents with a one-year history of left wrist pain, primarily on the ulnar side, with associated bilateral shoulder pain (R > L). She has trialed multiple conservative treatments (ice, topical analgesics, lidocaine patches, and self-applied K-tape) with minimal relief. A wrist brace provides some intermittent symptom relief. Objective measures show limited left wrist range of motion and significantly decreased analyzer sales strength (25# L vs. 60# R). Her QuickDASH score of 70.5% indicates severe disability related to upper limb function. Jessica would benefit from skilled OT services for pain relief, improved function, and functional grasp strengthening. Frequency and Duration: The patient will be seen 2x/wk for 4 weeks Short Term Goals: Decrease left wrist pain <4/10 with activity Improve wrist range of motion to at least 50? flexion / 55? extension IND with splinting wearing schedule Senior Care Goals: Pain free left wrist with home and work demands IND with progressive HEP Increase analyzer sales strength in the left hand to at least 40# Reduce QuickDASH score by at least 30%, indicating improved functional ability Treatment Plan: Therapeutic Exercise Therapeutic Activity Home Exercise Program Splinting Patient Education Ultrasound Iontophoresis MHP Soft Tissue Mobilization Kinesiotaping Electronically Signed By: Zaida Pickard MS OTR/L Please Sign and return to therapist. Thank you once again for your referral.
== END 2024-08-09 08:17 | disposition home or self-care (01) ==
LOC: HO.OTS 09:56
PROVIDERS: PCP Internal Medicine; Visit Provider Internal Medicine Rheumatology
DX: M77.8 Other enthesopathies, not elsewhere classified (principal)
CPT/HCPCS: 97035; 97110; 97165